=== PATIENT | female | born 1980 | race Caucasian/White ===

== ENCOUNTER 2017-08-12 20:05 | Emergency (ER) | payer BC, OTHER ==
[~2017-08-12] VITALS: Ht 167.6 cm; Wt 127.0 kg
[~2017-08-12 20:05] MED LIST: ADDERALL 10 MG10 MG PO; ATIVAN1 MG PO; ESKALITH300 MG; IBUPROFEN 800800 M1 PO; LAMICTAL100 MG PO; MULTIVITAMINS1 EAC7; NEURONTIN 300300 M1 PO; NORCO 5-325 TA1 EACH PO; PHENERGAN 25 MG25 M1 PO; TERBINAFINE15 GM TP; TRAMADOL 50 MG50 MG PO; TRAZODONE HCL50 MG PO; ULTRAM 50MG TAB50 MG PO; ZOFRAN4 MG PO; [UNRECOGNIZED DRUG - OTHER]
[2017-08-12] MEDS ORDERED: CYMBALTA60 MG PO (20:11)
[2017-08-12] MEDS ORDERED: WELLBUTRIN 100100 MG PO (20:12)
[2017-08-12 22:25] VITALS: BP 125/89
== END 2017-08-12 22:27 | disposition home or self-care (01) ==
LOC: ER 20:05
DX: F41.9 Anxiety disorder, unspecified (principal); R51 Headache; F17.210 Nicotine dependence, cigarettes, uncomplicated; Z90.49 Acquired absence of other specified parts of digestive tract; Z88.5 Allergy status to narcotic agent